=== PATIENT | male | born 1960 | race Caucasian/White ===

== ENCOUNTER 2017-12-19 08:52 | Outpatient (CLI) | payer OTHER ==
--- NOTE | 2017-12-19 10:41 | Diagnostic Imaging Report ---
ANNALEE FAY ([place]IC[place]) - OP [facility] [id number] [facility] [id number] Report Submission Date: Dec 19, 2017 9:28:48 AM CDT Patient Study Name: YOSELYN HANNA Date: Dec 19, 2017 8:52:25 AM CDT Modality Type: DX Gender: M Description: SHOULDER : 60 Institution: [facility] Physician: ANNALEE FAY) - OP Examination: Plain film left shoulder History: LT SHOULDER PAIN WITH NO KNOWN INJURY X SEVERAL MONTHS; PAIN WORSENING OVER LAST COUPLE MONTHS (Hx) Comparison exams: None provided Findings: 3 views of the left shoulder demonstrate normal cortical margins. No evidence for fracture or dislocation. No soft tissue abnormality. Mild acromioclavicular joint degenerative disease. Impression: Mild acromioclavicular joint degenerative changes. No acute osseous process. Electronically signed on Dec 19, 2017 9:28:48 AM CDT by: Micheal FERRELL
== END 2017-12-19 13:56 ==
LOC: RAD 08:52
PROVIDERS: ATTEND Nurse Practitioner Family
DX: M25.512 Pain in left shoulder (principal)
CPT/HCPCS: 73030